=== PATIENT | male | born 1935 | race Caucasian/White ===

== ENCOUNTER → 2020-08-28 10:57 | Outpatient (CLI) | payer OTHER ==
[~2020-08-28 10:57] MED LIST: AMLODIPINE-OLM1 EACH PO; CEFTIN PO; CEFUROXIME500 MG; FORTAMET500 MG PO; LIPITOR20 MG PO; LISINOPRIL2.5 MG; ST. JOSEPH ASPI81 M2; TAMS0.4C PO
== END | disposition home or self-care (01) ==
LOC: LAB 10:57
PROVIDERS: ATTEND Internal Medicine
DX: E03.8 Other specified hypothyroidism (principal); C61 Malignant neoplasm of prostate; E78.89 Other lipoprotein metabolism disorders; I10 Essential (primary) hypertension; M54.5 Low back pain; Z03.818 Encounter for observation for suspected exposure to other biological agents ruled out; Z20.828 Contact with and (suspected) exposure to other viral communicable diseases

== ENCOUNTER 2020-09-11 06:00 | Day surgery (SDC) | payer OTHER ==
[~2020-09-11 06:00] MED LIST changes: -CEFUROXIME500 MG; -LISINOPRIL2.5 MG; -ST. JOSEPH ASPI81 M2
[2020-09-11] MEDS ORDERED: CEFUROXIME500 MG (08:00)
[2020-09-11] MEDS ORDERED: ST. JOSEPH ASPI81 M2 (13:47)
[2020-09-11] MEDS ORDERED: LISINOPRIL2.5 MG (13:47)
== END 2020-09-12 08:00 | disposition home or self-care (01) ==
LOC: SURH 06:00 → CIR.AMB 06:00 → O/R 06:00 → SURG 06:00 → SURH 07:15 → EDSTATUS 07:15 → SURG 14:05 → O/R 14:05 → SURG 15:34 → O/R 15:34 → SURH 15:34 → CIR.AMB 09-12 08:00 → SURH 09-12 11:00
PROVIDERS: ATTEND Urology
DX: N40.1 Benign prostatic hyperplasia with lower urinary tract symptoms (principal); R33.8 Other retention of urine; I10 Essential (primary) hypertension; Z85.46 Personal history of malignant neoplasm of prostate; Z08 Encounter for follow-up examination after completed treatment for malignant neoplasm